=== PATIENT | female | born 1965 | race African-American/Black ===

== ENCOUNTER 2017-11-21 05:23 | Emergency (ER) | payer OTHER ==
[~2017-11-21] VITALS: Ht 170.2 cm; Wt 63.6 kg
[2017-11-21] MEDS ORDERED: LIDOCAINE HCL 1% 10 ML VIAL INJ ONE (06:30)
[2017-11-21 07:42] VITALS: BP 122/80
== END 2017-11-21 08:53 | disposition home or self-care (01) ==
LOC: EMS 05:25
DX: S01.81XA Laceration without foreign body of other part of head, initial encounter (principal); I67.2 Cerebral atherosclerosis; F17.210 Nicotine dependence, cigarettes, uncomplicated; Z88.0 Allergy status to penicillin; Y08.89XA Assault by other specified means, initial encounter; Y92.89 Other specified places as the place of occurrence of the external cause; Y93.89 Activity, other specified; Y99.8 Other external cause status
CPT/HCPCS: 12011; 70450; 70486; 99284; J3490

== ENCOUNTER 2019-08-03 06:36 | Emergency (ER) | payer OTHER ==
[~2019-08-03] VITALS: Ht 170.2 cm; Wt 54.5 kg
[2019-08-03] MEDS ORDERED: LIDOCAINE 5% TRANSDERMAL PATCH TD ONE (10:30)
[2019-08-03] MEDS ORDERED: IBUPROFEN 800 MG TABLET PO ONE (12:00)
[2019-08-03 13:21] VITALS: BP 145/95
== END 2019-08-03 13:35 | disposition home or self-care (01) ==
LOC: EMS 06:36
DX: M54.5 Low back pain (principal); M54.6 Pain in thoracic spine; F17.210 Nicotine dependence, cigarettes, uncomplicated; Z88.0 Allergy status to penicillin
CPT/HCPCS: 72072; 72100

== ENCOUNTER 2019-08-31 02:18 | Inpatient (IN) | payer OTHER ==
[~2019-08-31] VITALS: Ht 170.2 cm; Wt 54.0 kg
[2019-08-31] VITALS (14 sets, daily range): BP systolic 89–132; BP diastolic 43–90
[2019-08-31 02:33] LABS: BASOPHILS % (AUTO) 0.3 % (0.0-2.0); EOSINOPHILS % (AUTO) 0.8 % (1.0-6.0); HEMATOCRIT 22.9 % (36-46); HEMOGLOBIN 7.5 g/dL (12.0-16.0); LYMPHOCYTES # (AUTO) 1.7 K/uL (1.0-4.8); MEAN CORPUSCULAR HEMOGLOBIN 32.3 pg (26.0-34.0); MEAN CORPUSCULAR HGB CONC 32.6 G/dL (31.0-37.0); MEAN CORPUSCULAR VOLUME 99 fL (80-100); MONOCYTES % (AUTO) 15.3 % (2.0-9.0); NEUTROPHILS # (AUTO) 3.8 K/uL (1.8-7.7); NEUTROPHILS % (AUTO) 57.6 % (40.0-70.0); PLATELET COUNT (AUTO) 140 K/uL (150-450); RED BLOOD CELL COUNT(AUTO) 2.31 MIL/uL (4.00-5.20); RED CELL DISTRIBUTION WIDTH 15.7 % (11.5-14.5)
[2019-08-31] MEDS ORDERED: IBUP-2124 PO (02:34)
[2019-08-31] MEDS ORDERED: IBUP100T38 PO (02:35)
[2019-08-31 02:45] LABS: INR 1.3 (0.9-1.1); PROTHROMBIN TIME 13.4 SEC (9.4-11.6)
[2019-08-31 02:49] LABS: ANION GAP 10 mmol/L (8-16); CALCIUM, TOTAL 7.4 mg/dL (8.8-10.5); CARBON DIOXIDE 23 mmol/L (22-29); CHLORIDE 108 mmol/L (98-107); CREATININE 0.76 mg/dL (0.60-1.30); GLOMERULAR FILTR. RATE CALC > 60 mL/min (>60); GLUCOSE,RANDOM 129 mg/dL (70-110); POTASSIUM 3.5 mmol/L (3.5-5.1); SODIUM SERUM 141 mmol/L (136-145); UREA NITROGEN, BLOOD 15 mg/dL (7-18)
[2019-08-31 02:52] LABS: B-TYPE NATRIURETIC PEPTIDE 39 pg/mL (0-100)
[2019-08-31 03:00] LABS: ALANINE AMINOTRANSFERASE 26 U/L (12-78); ALBUMIN 1.9 g/dL (3.4-5.0); ALKALINE PHOSPHATASE 116 U/L (46-116); ASPARTATE AMINOTRANSFERASE 51 U/L (15-37); BILIRUBIN,TOTAL 0.6 mg/dL (0.1-1.0); HCG,QUANTITATIVE 6 mIU/mL (0-6); LIPASE 172 U/L (73-393); TOTAL PROTEIN, SERUM 6.4 g/dL (6.4-8.2)
[2019-08-31] MEDS ORDERED: ONDANSETRON HCL 4 MG/2 ML VIAL IVP ONE (03:15)
[2019-08-31] MEDS ORDERED: SODIUM CHLORIDE 0.9% 1,000 ML IV ONE ×3 (03:15→22:53)
[2019-08-31] MEDS ORDERED: PANTOPRAZOLE SODIUM 40 MG/VIAL IVP ONE (04:00)
[2019-08-31] MEDS ORDERED: SODIUM CHLORIDE 0.9% 250 ML IV ONE (04:00)
[2019-08-31] MEDS ORDERED: ACETAMINOPHEN 325 MG TABLET PO PRN (05:00)
[2019-08-31] MEDS ORDERED: 0.9% SODIUM CHLORIDE 10 ML SYRINGE IVP PRN (05:00)
[2019-08-31] MEDS ORDERED: ONDANSETRON HCL 4 MG/2 ML VIAL IVP PRN ×2 (05:00→08:15)
[2019-08-31] MEDS ORDERED: ACETAMINOPHEN 1000 MG/ISO-OSM 100 ML IV ONE (06:15)
[2019-08-31 06:53] LABS: BILIRUBIN,URINE NEGATIVE (NEGATIVE); GLUCOSE, URINE (UA) NEGATIVE (NEGATIVE); KETONES,URINE NEGATIVE (NEGATIVE); LEUKOCYTE ESTERASE ,URINE NEGATIVE (NEGATIVE); OCCULT BLOOD,URINE NEGATIVE (NEGATIVE); PROTEIN,URINE NEGATIVE (NEGATIVE)
[2019-08-31 06:54] LABS: APPEARANCE,URINE CLEAR (CLEAR); NITRATE,URINE NEGATIVE (NEGATIVE)
[2019-08-31] MEDS: PANTOPRAZOLE SODIUM 80 MG in SODIUM CHLORIDE 0.9% 100 ML IV SCH ×2 (08:43→19:56)
[2019-08-31] MEDS: DOCUSATE SODIUM 100 MG CAPSULE PO SCH ×2 (09:00→20:27)
[2019-08-31 10:13] LABS: BASOPHILS % (AUTO) 0.2 % (0.0-2.0); EOSINOPHILS % (AUTO) 0 % (1.0-6.0); HEMATOCRIT 22.4 % (36-46); HEMOGLOBIN 7.4 g/dL (12.0-16.0); LYMPHOCYTES # (AUTO) 2.1 K/uL (1.0-4.8); LYMPHOCYTES % (AUTO) 22.4 % (22.0-44.0); MEAN CORPUSCULAR HGB CONC 33.3 G/dL (31.0-37.0); MEAN CORPUSCULAR VOLUME 96 fL (80-100); MONOCYTES # (AUTO) 1.1 K/uL (0.1-1.0); MONOCYTES % (AUTO) 11.9 % (2.0-9.0); NEUTROPHILS # (AUTO) 6.3 K/uL (1.8-7.7); NEUTROPHILS % (AUTO) 65.5 % (40.0-70.0); PLATELET COUNT (AUTO) 122 K/uL (150-450); RED BLOOD CELL COUNT(AUTO) 2.32 MIL/uL (4.00-5.20); RED CELL DISTRIBUTION WIDTH 15.7 % (11.5-14.5)
[2019-08-31] MEDS: MORPHINE SULFATE 2 MG/ML SYRINGE IVP PRN ×3 (11:03→20:27)
[2019-08-31] MEDS ORDERED: DEXTROSE 5%-0.45% SODIUM CHL 1,000 ML IV PRN (11:30)
[2019-08-31] MEDS ORDERED: PANTOPRAZOLE SODIUM 80 MG in SODIUM CHLORIDE 0.9% 100 ML IV SCH (12:00)
[2019-08-31] MEDS ORDERED: PHYTONADIONE 10 MG/1 ML AMP SQ ONE (12:00)
[2019-08-31] MEDS ORDERED: EPINEPHrine 1:10,000 [1 MG/10 ML] SYRINGE ONE (12:34)
[2019-08-31] MEDS: OXYGEN THERAPY IH SCH ×2 (20:26→20:28)
[2019-08-31 21:55] LABS: HEMOGLOBIN 6.9 g/dL (12.0-16.0)
[2019-09-01] VITALS (11 sets, daily range): BP systolic 118–150; BP diastolic 35–95
[2019-09-01] MEDS: PANTOPRAZOLE SODIUM 80 MG in SODIUM CHLORIDE 0.9% 100 ML IV SCH ×3 (03:06→23:16)
[2019-09-01] MEDS ORDERED: PROPOFOL 1% 20 ML VIAL IVP ONE (05:06)
[2019-09-01] MEDS ORDERED: LIDOCAINE/PF 2% 5 ML VIAL IM ONE (05:06)
[2019-09-01] MEDS: MORPHINE SULFATE 2 MG/ML SYRINGE IVP PRN ×4 (05:16→19:57)
[2019-09-01 05:39] LABS: HEMATOCRIT 24.5 % (36-46); HEMOGLOBIN 8.4 g/dL (12.0-16.0)
[2019-09-01] MEDS: DOCUSATE SODIUM 100 MG CAPSULE PO SCH ×2 (09:00→21:00)
[2019-09-01 09:08] LABS: BASOPHILS % (AUTO) 0.6 % (0.0-2.0); EOSINOPHILS % (AUTO) 0.7 % (1.0-6.0); HEMATOCRIT 25.7 % (36-46); HEMOGLOBIN 8.4 g/dL (12.0-16.0); LYMPHOCYTES # (AUTO) 1.9 K/uL (1.0-4.8); LYMPHOCYTES % (AUTO) 16.6 % (22.0-44.0); MEAN CORPUSCULAR HEMOGLOBIN 31.8 pg (26.0-34.0); MEAN CORPUSCULAR HGB CONC 32.7 G/dL (31.0-37.0); MEAN CORPUSCULAR VOLUME 97 fL (80-100); MONOCYTES # (AUTO) 1.3 K/uL (0.1-1.0); MONOCYTES % (AUTO) 11.9 % (2.0-9.0); NEUTROPHILS # (AUTO) 7.8 K/uL (1.8-7.7); NEUTROPHILS % (AUTO) 70.2 % (40.0-70.0); RED BLOOD CELL COUNT(AUTO) 2.64 MIL/uL (4.00-5.20); RED CELL DISTRIBUTION WIDTH 16.5 % (11.5-14.5)
[2019-09-01 09:23] LABS: ALANINE AMINOTRANSFERASE 22 U/L (12-78); ALBUMIN 1.8 g/dL (3.4-5.0); ALKALINE PHOSPHATASE 77 U/L (46-116); ANION GAP 6 mmol/L (8-16); ASPARTATE AMINOTRANSFERASE 50 U/L (15-37); CARBON DIOXIDE 22 mmol/L (22-29); CHLORIDE 113 mmol/L (98-107); CREATININE 0.68 mg/dL (0.60-1.30); GLOMERULAR FILTR. RATE CALC > 60 mL/min (>60); GLUCOSE,RANDOM 96 mg/dL (70-110); POTASSIUM 3.7 mmol/L (3.5-5.1); SODIUM SERUM 141 mmol/L (136-145); TOTAL PROTEIN, SERUM 5.8 g/dL (6.4-8.2); UREA NITROGEN, BLOOD 17 mg/dL (7-18)
[2019-09-01] MEDS: OXYGEN THERAPY IH SCH ×2 (09:47→20:34)
[2019-09-01 10:29] LABS: INR 1.2 (0.9-1.1); PROTHROMBIN TIME 12.2 SEC (9.4-11.6)
[2019-09-01 10:41] LABS: PLATELET COUNT (AUTO) 90 K/uL (150-450)
[2019-09-01] MEDS: CIPROFLOXACIN HCL 500 MG TABLET PO SCH ×2 (18:30→21:41)
[2019-09-01] MEDS ORDERED: IOVERSOL 320 MG/ML 100 ML VIAL ONE (18:54)
[2019-09-01] MEDS ORDERED: BARIUM SULFATE 0.1% SUSPENSION 450 ML BOTTLE ONE (18:55)
[2019-09-01] MEDS ORDERED: SODIUM CHLORIDE 0.9% 100 ML ONE (18:55)
[2019-09-01] MEDS ORDERED: IOVERSOL 350 MG/ML 100 ML VIAL ONE (22:17)
[2019-09-01] MEDS ORDERED: IOVERSOL 350 MG/ML 50 ML VIAL ONE (22:17)
[2019-09-02] VITALS (7 sets, daily range): BP systolic 108–156; BP diastolic 57–96
[2019-09-02] MEDS: MORPHINE SULFATE 2 MG/ML SYRINGE IVP PRN ×5 (00:03→20:18)
[2019-09-02 05:27] LABS: BASOPHILS % (AUTO) 0.2 % (0.0-2.0); EOSINOPHILS % (AUTO) 0.7 % (1.0-6.0); HEMATOCRIT 24.8 % (36-46); HEMOGLOBIN 8.3 g/dL (12.0-16.0); LYMPHOCYTES # (AUTO) 1.3 K/uL (1.0-4.8); LYMPHOCYTES % (AUTO) 17.8 % (22.0-44.0); MEAN CORPUSCULAR HEMOGLOBIN 31.7 pg (26.0-34.0); MEAN CORPUSCULAR HGB CONC 33.5 G/dL (31.0-37.0); MEAN CORPUSCULAR VOLUME 95 fL (80-100); MONOCYTES % (AUTO) 12.7 % (2.0-9.0); NEUTROPHILS # (AUTO) 5.2 K/uL (1.8-7.7); NEUTROPHILS % (AUTO) 68.6 % (40.0-70.0); PLATELET COUNT (AUTO) 82 K/uL (150-450); RED BLOOD CELL COUNT(AUTO) 2.62 MIL/uL (4.00-5.20); RED CELL DISTRIBUTION WIDTH 16.4 % (11.5-14.5)
[2019-09-02 05:41] LABS: ANION GAP 5 mmol/L (8-16); CALCIUM, TOTAL 7.4 mg/dL (8.8-10.5); CARBON DIOXIDE 23 mmol/L (22-29); CHLORIDE 106 mmol/L (98-107); CREATININE 0.58 mg/dL (0.60-1.30); GLOMERULAR FILTR. RATE CALC > 60 mL/min (>60); GLUCOSE,RANDOM 110 mg/dL (70-110); POTASSIUM 3.2 mmol/L (3.5-5.1); SODIUM SERUM 134 mmol/L (136-145); UREA NITROGEN, BLOOD 7 mg/dL (7-18)
[2019-09-02] MEDS ORDERED: POTASSIUM CHLORIDE 20 MEQ ER TABLET PO PRN ×2 (06:00)
[2019-09-02] MEDS ORDERED: MAGNESIUM SULFATE 3 GM in DEXTROSE 5%-WATER 100 ML IV ONE (06:15)
[2019-09-02] MEDS: POTASSIUM CHL 10 MEQ/WATER 50 ML IV PRN ×3 (06:22→08:45)
[2019-09-02] MEDS: CIPROFLOXACIN HCL 500 MG TABLET PO SCH ×2 (08:00→20:18)
[2019-09-02] MEDS: DOCUSATE SODIUM 100 MG CAPSULE PO SCH ×2 (08:01→20:18)
[2019-09-02] MEDS: OXYGEN THERAPY IH SCH ×2 (08:01→20:19)
[2019-09-02] MEDS: ACETAMINOPHEN 325 MG TABLET PO PRN (08:32)
[2019-09-02] MEDS: PANTOPRAZOLE SODIUM 80 MG in SODIUM CHLORIDE 0.9% 100 ML IV SCH ×2 (09:59→20:19)
[2019-09-02] MEDS ORDERED: GADOBUTROL 1 MMOL/ML 10 ML VIAL IVP ONE (15:04)
[2019-09-03 00:15] VITALS: BP 131/74
[2019-09-03] MEDS: MORPHINE SULFATE 2 MG/ML SYRINGE IVP PRN ×6 (00:48→21:18)
[2019-09-03] MEDS: PANTOPRAZOLE SODIUM 80 MG in SODIUM CHLORIDE 0.9% 100 ML IV SCH ×3 (03:14→21:58)
[2019-09-03 04:12] VITALS: BP 126/69
[2019-09-03 07:37] LABS: BASOPHILS % (AUTO) 0.1 % (0.0-2.0); EOSINOPHILS % (AUTO) 0.5 % (1.0-6.0); HEMATOCRIT 23.6 % (36-46); HEMOGLOBIN 8.1 g/dL (12.0-16.0); LYMPHOCYTES # (AUTO) 1.1 K/uL (1.0-4.8); LYMPHOCYTES % (AUTO) 14.4 % (22.0-44.0); MEAN CORPUSCULAR HEMOGLOBIN 32.4 pg (26.0-34.0); MEAN CORPUSCULAR HGB CONC 34.2 G/dL (31.0-37.0); MEAN CORPUSCULAR VOLUME 95 fL (80-100); MONOCYTES % (AUTO) 13.5 % (2.0-9.0); NEUTROPHILS # (AUTO) 5.5 K/uL (1.8-7.7); NEUTROPHILS % (AUTO) 71.5 % (40.0-70.0); PLATELET COUNT (AUTO) 107 K/uL (150-450); RED BLOOD CELL COUNT(AUTO) 2.49 MIL/uL (4.00-5.20); RED CELL DISTRIBUTION WIDTH 16.1 % (11.5-14.5)
[2019-09-03 07:57] LABS: ANION GAP 8 mmol/L (8-16); CALCIUM, TOTAL 7.8 mg/dL (8.8-10.5); CARBON DIOXIDE 22 mmol/L (22-29); CHLORIDE 106 mmol/L (98-107); CREATININE 0.62 mg/dL (0.60-1.30); GLOMERULAR FILTR. RATE CALC > 60 mL/min (>60); GLUCOSE,RANDOM 99 mg/dL (70-110); POTASSIUM 3.5 mmol/L (3.5-5.1); SODIUM SERUM 136 mmol/L (136-145); UREA NITROGEN, BLOOD 7 mg/dL (7-18)
[2019-09-03] MEDS ORDERED: MAGNESIUM OXIDE 400 MG TABLET PO PRN (08:15)
[2019-09-03] MEDS: OXYGEN THERAPY IH SCH ×2 (08:34→20:01)
[2019-09-03] MEDS: CIPROFLOXACIN HCL 500 MG TABLET PO SCH ×2 (08:35→20:00)
[2019-09-03] MEDS: DOCUSATE SODIUM 100 MG CAPSULE PO SCH ×2 (08:35→20:00)
[2019-09-03 08:49] LABS: ALBUMIN 1.8 g/dL (3.4-5.0)
[2019-09-03 09:08] VITALS: BP 102/61
[2019-09-03] MEDS: MAGNESIUM SULFATE 4 GM/WATER 100 ML IV PRN (09:19)
[2019-09-03 12:28] VITALS: BP 109/72
[2019-09-03 14:05] LABS: PHOSPHORUS 4.2 mg/dL (2.5-4.9)
[2019-09-03 15:40] VITALS: BP 112/74
[2019-09-03] MEDS: THIAMINE HCL 100 MG TABLET PO SCH (20:00)
[2019-09-03 21:07] VITALS: BP 124/72
[2019-09-04] VITALS (7 sets, daily range): BP systolic 100–129; BP diastolic 62–85
[2019-09-04] MEDS: MORPHINE SULFATE 2 MG/ML SYRINGE IVP PRN ×5 (02:38→23:00)
[2019-09-04 08:13] LABS: ALANINE AMINOTRANSFERASE 23 U/L (12-78); ALBUMIN 1.7 g/dL (3.4-5.0); ALKALINE PHOSPHATASE 83 U/L (46-116); ANION GAP 9 mmol/L (8-16); ASPARTATE AMINOTRANSFERASE 50 U/L (15-37); BILIRUBIN,TOTAL 0.7 mg/dL (0.1-1.0); CALCIUM, TOTAL 7.6 mg/dL (8.8-10.5); CARBON DIOXIDE 22 mmol/L (22-29); CHLORIDE 103 mmol/L (98-107); CREATININE 0.54 mg/dL (0.60-1.30); GLOMERULAR FILTR. RATE CALC > 60 mL/min (>60); GLUCOSE,RANDOM 89 mg/dL (70-110); POTASSIUM 3.3 mmol/L (3.5-5.1); SODIUM SERUM 134 mmol/L (136-145); TOTAL PROTEIN, SERUM 6.2 g/dL (6.4-8.2)
[2019-09-04] MEDS: CIPROFLOXACIN HCL 500 MG TABLET PO SCH ×2 (08:17→20:09)
[2019-09-04] MEDS: MULTIVITAMINS WITH MINERALS, THERAPEUTIC TABLET PO SCH (08:17)
[2019-09-04] MEDS: PANTOPRAZOLE SODIUM 80 MG in SODIUM CHLORIDE 0.9% 100 ML IV SCH (08:18)
[2019-09-04] MEDS: DOCUSATE SODIUM 100 MG CAPSULE PO SCH ×2 (08:18→20:09)
[2019-09-04] MEDS: THIAMINE HCL 100 MG TABLET PO SCH ×2 (08:18→20:09)
[2019-09-04] MEDS: OXYGEN THERAPY IH SCH ×2 (08:27→20:00)
[2019-09-04 08:35] LABS: UREA NITROGEN, BLOOD 6 mg/dL (7-18)
[2019-09-04 08:52] LABS: INR 1.2 (0.9-1.1); PROTHROMBIN TIME 12.5 SEC (9.4-11.6)
[2019-09-04] MEDS: MAGNESIUM SULFATE 4 GM/WATER 100 ML IV PRN (09:52)
[2019-09-04] MEDS: PANTOPRAZOLE SODIUM 40 MG DR TABLET PO SCH (20:09)
[2019-09-05] MEDS: MORPHINE SULFATE 2 MG/ML SYRINGE IVP PRN ×5 (03:52→23:54)
[2019-09-05 04:37] VITALS: BP 119/76
[2019-09-05 06:41] LABS: INR 1.2 (0.9-1.1); PROTHROMBIN TIME 12.3 SEC (9.4-11.6)
[2019-09-05 06:49] LABS: ALANINE AMINOTRANSFERASE 30 U/L (12-78); ALBUMIN 1.8 g/dL (3.4-5.0); ALKALINE PHOSPHATASE 97 U/L (46-116); ANION GAP 9 mmol/L (8-16); ASPARTATE AMINOTRANSFERASE 59 U/L (15-37); BILIRUBIN,TOTAL 0.7 mg/dL (0.1-1.0); CALCIUM, TOTAL 7.8 mg/dL (8.8-10.5); CARBON DIOXIDE 22 mmol/L (22-29); CHLORIDE 101 mmol/L (98-107); CREATININE 0.54 mg/dL (0.60-1.30); GLOMERULAR FILTR. RATE CALC > 60 mL/min (>60); GLUCOSE,RANDOM 95 mg/dL (70-110); POTASSIUM 3.8 mmol/L (3.5-5.1); SODIUM SERUM 132 mmol/L (136-145); TOTAL PROTEIN, SERUM 6.9 g/dL (6.4-8.2); UREA NITROGEN, BLOOD 5 mg/dL (7-18)
[2019-09-05 07:45] VITALS: BP 140/78
[2019-09-05] MEDS: CIPROFLOXACIN HCL 500 MG TABLET PO SCH ×2 (09:20→20:24)
[2019-09-05] MEDS ORDERED: GADOBUTROL 1 MMOL/ML 10 ML VIAL IVP ONE (09:35)
[2019-09-05 11:22] VITALS: BP 112/75
[2019-09-05] MEDS: DOCUSATE SODIUM 100 MG CAPSULE PO SCH ×2 (12:16→20:24)
[2019-09-05] MEDS: THIAMINE HCL 100 MG TABLET PO SCH ×2 (12:16→20:24)
[2019-09-05] MEDS: MULTIVITAMINS WITH MINERALS, THERAPEUTIC TABLET PO SCH (12:16)
[2019-09-05] MEDS: PANTOPRAZOLE SODIUM 40 MG DR TABLET PO SCH ×2 (12:16→20:24)
[2019-09-05] MEDS: MAGNESIUM SULFATE 4 GM/WATER 100 ML IV PRN (12:18)
[2019-09-05] MEDS: OXYGEN THERAPY IH SCH ×2 (13:50→20:00)
[2019-09-05 15:27] VITALS: BP 117/82
[2019-09-05 19:00] VITALS: BP 124/77
[2019-09-05 23:46] VITALS: BP 124/74
[2019-09-06] VITALS (16 sets, daily range): BP systolic 95–137; BP diastolic 58–81
[2019-09-06] MEDS: MORPHINE SULFATE 2 MG/ML SYRINGE IVP PRN ×5 (04:15→20:52)
[2019-09-06 06:15] LABS: INR 1.2 (0.9-1.1); PROTHROMBIN TIME 12.4 SEC (9.4-11.6)
[2019-09-06 06:17] LABS: ALANINE AMINOTRANSFERASE 31 U/L (12-78); ALBUMIN 1.8 g/dL (3.4-5.0); ALKALINE PHOSPHATASE 99 U/L (46-116); ANION GAP 7 mmol/L (8-16); ASPARTATE AMINOTRANSFERASE 56 U/L (15-37); BILIRUBIN,TOTAL 0.7 mg/dL (0.1-1.0); CALCIUM, TOTAL 7.9 mg/dL (8.8-10.5); CARBON DIOXIDE 23 mmol/L (22-29); CHLORIDE 101 mmol/L (98-107); CREATININE 0.54 mg/dL (0.60-1.30); GLOMERULAR FILTR. RATE CALC > 60 mL/min (>60); GLUCOSE,RANDOM 92 mg/dL (70-110); POTASSIUM 3.7 mmol/L (3.5-5.1); SODIUM SERUM 131 mmol/L (136-145); TOTAL PROTEIN, SERUM 6.9 g/dL (6.4-8.2); UREA NITROGEN, BLOOD 6 mg/dL (7-18)
[2019-09-06] MEDS: PANTOPRAZOLE SODIUM 40 MG DR TABLET PO SCH ×2 (10:54→20:46)
[2019-09-06] MEDS: THIAMINE HCL 100 MG TABLET PO SCH ×2 (10:54→20:46)
[2019-09-06] MEDS: DOCUSATE SODIUM 100 MG CAPSULE PO SCH ×2 (10:54→20:46)
[2019-09-06] MEDS: MULTIVITAMINS WITH MINERALS, THERAPEUTIC TABLET PO SCH (10:54)
[2019-09-06] MEDS: CIPROFLOXACIN HCL 500 MG TABLET PO SCH ×2 (10:55→20:46)
[2019-09-06] MEDS: OXYGEN THERAPY IH SCH ×2 (10:57→20:46)
[2019-09-06] MEDS ORDERED: SODIUM CHLORIDE 0.9% 250 ML IV ONE (14:40)
[2019-09-07] VITALS (11 sets, daily range): BP systolic 91–120; BP diastolic 56–74
[2019-09-07] MEDS: ACETAMINOPHEN 325 MG TABLET PO PRN ×4 (00:18→20:38)
[2019-09-07] MEDS: MORPHINE SULFATE 2 MG/ML SYRINGE IVP PRN ×4 (00:54→22:39)
[2019-09-07 06:47] LABS: BASOPHILS % (AUTO) 0.3 % (0.0-2.0); EOSINOPHILS % (AUTO) 0.6 % (1.0-6.0); HEMOGLOBIN 8.6 g/dL (12.0-16.0); LYMPHOCYTES # (AUTO) 2.2 K/uL (1.0-4.8); LYMPHOCYTES % (AUTO) 17.7 % (22.0-44.0); MEAN CORPUSCULAR HEMOGLOBIN 29.3 pg (26.0-34.0); MEAN CORPUSCULAR VOLUME 89 fL (80-100); MONOCYTES # (AUTO) 3.1 K/uL (0.1-1.0); MONOCYTES % (AUTO) 24.6 % (2.0-9.0); NEUTROPHILS % (AUTO) 56.8 % (40.0-70.0); PLATELET COUNT (AUTO) 216 K/uL (150-450); RED BLOOD CELL COUNT(AUTO) 2.94 MIL/uL (4.00-5.20); RED CELL DISTRIBUTION WIDTH 21.7 % (11.5-14.5)
[2019-09-07 07:01] LABS: INR 1.2 (0.9-1.1); PROTHROMBIN TIME 12.5 SEC (9.4-11.6)
[2019-09-07 07:05] LABS: ANION GAP 9 mmol/L (8-16); CALCIUM, TOTAL 7.8 mg/dL (8.8-10.5); CARBON DIOXIDE 22 mmol/L (22-29); CHLORIDE 101 mmol/L (98-107); CREATININE 0.67 mg/dL (0.60-1.30); GLOMERULAR FILTR. RATE CALC > 60 mL/min (>60); GLUCOSE,RANDOM 88 mg/dL (70-110); POTASSIUM 3.7 mmol/L (3.5-5.1); SODIUM SERUM 132 mmol/L (136-145); UREA NITROGEN, BLOOD 7 mg/dL (7-18)
[2019-09-07] MEDS ORDERED: FentaNYL CITRATE-PF 100 MCG/2 ML VIAL ONE ×2 (09:01→09:29)
[2019-09-07] MEDS ORDERED: NALOXONE HCL 0.4 MG/ML VIAL ONE (09:01)
[2019-09-07] MEDS ORDERED: MIDAZOLAM HCL 2 MG/2 ML VIAL ONE (09:01)
[2019-09-07] MEDS ORDERED: FentaNYL CITRATE-PF 100 MCG/2 ML VIAL IVP ONE ×2 (10:15→10:56)
[2019-09-07] MEDS ORDERED: MIDAZOLAM HCL 2 MG/2 ML VIAL IVP ONE (10:15)
[2019-09-07] MEDS ORDERED: SODIUM CHLORIDE 0.9% 250 ML IV ONE (10:15)
[2019-09-07] MEDS ORDERED: MIDAZOLAM HCL 2 MG/2 ML VIAL IM ONE (10:54)
[2019-09-07] MEDS ORDERED: SODIUM CHLORIDE 0.9% 100 ML ONE (12:58)
[2019-09-07] MEDS: PANTOPRAZOLE SODIUM 40 MG DR TABLET PO SCH ×2 (13:17→20:38)
[2019-09-07] MEDS: OXYGEN THERAPY IH SCH ×2 (13:17→20:43)
[2019-09-07] MEDS: MAGNESIUM SULFATE 2 GM/WATER 50 ML IV PRN (13:17)
[2019-09-07] MEDS: MULTIVITAMINS WITH MINERALS, THERAPEUTIC TABLET PO SCH (13:18)
[2019-09-07] MEDS: CIPROFLOXACIN HCL 500 MG TABLET PO SCH ×2 (13:18→20:39)
[2019-09-07] MEDS: THIAMINE HCL 100 MG TABLET PO SCH ×2 (13:18→20:38)
[2019-09-07] MEDS: DOCUSATE SODIUM 100 MG CAPSULE PO SCH ×2 (13:18→20:38)
[2019-09-08 02:50] VITALS: BP 144/82
[2019-09-08] MEDS: MORPHINE SULFATE 2 MG/ML SYRINGE IVP PRN (03:00)
[2019-09-08 04:31] VITALS: BP 103/58
[2019-09-08 07:08] LABS: BASOPHILS % (AUTO) 0.2 % (0.0-2.0); EOSINOPHILS % (AUTO) 0.7 % (1.0-6.0); HEMATOCRIT 26.9 % (36-46); HEMOGLOBIN 8.9 g/dL (12.0-16.0); LYMPHOCYTES # (AUTO) 1.6 K/uL (1.0-4.8); LYMPHOCYTES % (AUTO) 14.2 % (22.0-44.0); MEAN CORPUSCULAR HEMOGLOBIN 29.6 pg (26.0-34.0); MEAN CORPUSCULAR HGB CONC 33.1 G/dL (31.0-37.0); MEAN CORPUSCULAR VOLUME 89 fL (80-100); MONOCYTES # (AUTO) 2.2 K/uL (0.1-1.0); MONOCYTES % (AUTO) 19.5 % (2.0-9.0); NEUTROPHILS # (AUTO) 7.5 K/uL (1.8-7.7); NEUTROPHILS % (AUTO) 65.4 % (40.0-70.0); PLATELET COUNT (AUTO) 250 K/uL (150-450); RED BLOOD CELL COUNT(AUTO) 3.01 MIL/uL (4.00-5.20); RED CELL DISTRIBUTION WIDTH 21.4 % (11.5-14.5)
[2019-09-08 07:24] LABS: ALANINE AMINOTRANSFERASE 36 U/L (12-78); ALBUMIN 1.9 g/dL (3.4-5.0); ALKALINE PHOSPHATASE 115 U/L (46-116); ANION GAP 5 mmol/L (8-16); ASPARTATE AMINOTRANSFERASE 71 U/L (15-37); BILIRUBIN,TOTAL 0.7 mg/dL (0.1-1.0); CALCIUM, TOTAL 7.9 mg/dL (8.8-10.5); CARBON DIOXIDE 22 mmol/L (22-29); CHLORIDE 101 mmol/L (98-107); CREATININE 0.65 mg/dL (0.60-1.30); GLOMERULAR FILTR. RATE CALC > 60 mL/min (>60); GLUCOSE,RANDOM 92 mg/dL (70-110); POTASSIUM 3.8 mmol/L (3.5-5.1); SODIUM SERUM 128 mmol/L (136-145); TOTAL PROTEIN, SERUM 7.2 g/dL (6.4-8.2); UREA NITROGEN, BLOOD 6 mg/dL (7-18)
[2019-09-08 08:17] VITALS: BP 110/73
[2019-09-08] MEDS: DOCUSATE SODIUM 100 MG CAPSULE PO SCH (09:18)
[2019-09-08] MEDS: CIPROFLOXACIN HCL 500 MG TABLET PO SCH (09:19)
[2019-09-08] MEDS: PANTOPRAZOLE SODIUM 40 MG DR TABLET PO SCH (09:19)
[2019-09-08] MEDS: THIAMINE HCL 100 MG TABLET PO SCH (09:19)
[2019-09-08] MEDS: MULTIVITAMINS WITH MINERALS, THERAPEUTIC TABLET PO SCH (09:20)
[2019-09-08] MEDS: ACETAMINOPHEN 325 MG TABLET PO PRN (09:20)
[2019-09-08] MEDS: MAGNESIUM SULFATE 2 GM/WATER 50 ML IV PRN (09:22)
[2019-09-08] MEDS: OXYGEN THERAPY IH SCH (09:23)
[2019-09-08 10:53] VITALS: BP 130/73
[2019-09-08] MEDS ORDERED: CIPR-278 PO (12:34)
[2019-09-08] MEDS ORDERED: PANT20TA PO (12:35)
[2019-09-08] MEDS ORDERED: MAGN200T5 PO (12:36)
[2019-09-08] MEDS ORDERED: MULT-248 PO (12:38)
[2019-09-08] MEDS ORDERED: THIA100T67 PO (12:39)
== END 2019-09-08 14:25 | disposition home or self-care (01) | DRG 241 ==
LOC: EMS 02:19 → 5S 10:34 → ICU 11:18 → 5S 09-02 16:30
PROVIDERS: ADMIT Internal Medicine; ATTEND Internal Medicine
PROC: 30233N1 Transfusion of Nonautologous Red Blood Cells into Peripheral Vein, Percutaneous Approach (ICD-10-PCS; 2019-08-31)
PROC: 0W3P8ZZ Control Bleeding in Gastrointestinal Tract, Via Natural or Artificial Opening Endoscopic (ICD-10-PCS; principal; 2019-08-31 12:45)
PROC: 0FB03ZX Excision of Liver, Percutaneous Approach, Diagnostic (ICD-10-PCS; 2019-09-07)
DX: K25.0 Acute gastric ulcer with hemorrhage (principal); E43 Unspecified severe protein-calorie malnutrition; D62 Acute posthemorrhagic anemia; R16.0 Hepatomegaly, not elsewhere classified; F10.10 Alcohol abuse, uncomplicated; F17.210 Nicotine dependence, cigarettes, uncomplicated; Y90.9 Presence of alcohol in blood, level not specified; Z88.0 Allergy status to penicillin; Z90.49 Acquired absence of other specified parts of digestive tract; Z91.19 Patient's noncompliance with other medical treatment and regimen; Z68.1 Body mass index [BMI] 19.9 or less, adult
CPT/HCPCS: 36430; 47000; 74170; 74183; 76700; 82105; 82378; 83735; 84100; 84132; 85014; 85018; 86301; 86850; 86900; 86901; 86920; 87081; 88307; 88313; 88341; 88342; 93005; 99291; A9585; C9113; G0378; J0131; J0171; J2250; J2270; J2310; J2405; J2704; J3010; J3430; J3475; J3480; J3490; J7030; J7050; J7060; P9016